=== PATIENT | male | born 1950 | race African-American/Black ===

== ENCOUNTER 2017-03-19 00:17 | Emergency (ER) | payer OTHER ==
--- NOTE | ~2017-03-19 | HP ---
Unit #: [id number] #: [id number] Patient: PRADEEP PAREDES [id number] [place], [place] [address] [id number] I MR#: [id number] NAME: PRADEEP PAREDES ROOM: 22163 Age: 66 Sex: M Admission Date: 03/19/2017 : 1950 Attending Physician: Swati Palencia M.D. Primary Care Physician: No Primary Care Physician HISTORY AND PHYSICAL CHIEF COMPLAINT Chest pain and syncope. HISTORY This 66-year-old male with BPH, hypertension, is admitted for chest pain and syncope. The patient states that he was well until about 8:00 last evening when he began to experience substernal chest pressure with a pleuritic component radiating to his left shoulder. At 10:00 p.m. while watching fireworks and walking across the yard he felt warm, lightheaded, and then had a brief syncopal episode where he collapsed and blacked out. Hewitt short of breath with this episode. He was brought to this emergency department after three sublingual nitroglycerin were given by EMS without improvement. In the ER he was found to be bradycardic with a heart rate of 48. He continues to have substernal chest discomfort, worse with movement, again with a pleuritic component. Denies calf pain or swelling, recent travel. On examination he is also a bit tender in the left upper quadrant. EKG shows a sinus bradycardia, rate 51. He is nonorthostatic. Initial cardiac enzymes are negative. Patient was admitted to [facility] 2006 and underwent a negative cardiac catheterization during that hospitalization. Was last admitted to this facility 04/2011 for chest pain. Stress Cardiolite was negative for stress induced ischemia, although his left ventricular ejection fraction was 37% with septal hypokinesis. PAST MEDICAL HISTORY 1. BPH. 2. Cardiac catheterization negative in 2006. 3. Cardiolite stress test 2010 revealed an ejection fraction of 37% without ischemia but with septal hypokinesis. 4. Essential hypertension. 5. Colonoscopy and EGD 12/24 revealing gastritis, diverticular disease and a polyp, which was snared. 6. Right arthroscopic knee surgery. 7. Drainage of a left hydrocele. ALLERGIES None. HOME MEDICATIONS Norvasc 10 mg daily; metoprolol 50 mg b.i.d.; Flexeril 10 mg t.i.d.; nitroglycerin p.r.n. Unit #: [id number] #: [id number] Patient: PRADEEP PAREDES FAMILY HISTORY Positive for CAD. SOCIAL HISTORY The patient lives with his . He smokes less than 1/2 pack per day of tobacco, is trying to stop smoking, does not drink alcohol. REVIEW OF SYSTEMS Notable for chest pain, syncope, collapse, BPH, hypertension, above mentioned surgeries. Other systems were reviewed and are otherwise negative. PHYSICAL EXAMINATION GENERAL: Pleasant 66-year-old male currently in no acute distress. VITAL SIGNS: Temperature 97.7, pulse 48, respirations 17, blood pressure 134/69. Patient is nonorthostatic. O2 saturation is 100% on room air. HEENT: Eyes - PERRLA, extraocular muscles are intact. Pharynx is benign. NECK: Supple without adenopathy or thyromegaly. CHEST: Clear. Chest without reproducible chest wall tenderness. CARDIAC: Normal S1 and S2 without S3, S4, or murmur. ABDOMEN: Bowel sounds are present, patient is somewhat tender in the epigastric and left upper quadrant, which does not reproduce his chest pain, however. No hepatosplenomegaly or masses. No rebound or guarding. EXTREMITIES: Without clubbing, cyanosis or edema. Pedal pulses are present. Negative Thelma sign, no ulcers on the feet. NEUROLOGIC: Patient is awake, alert and oriented. Cranial nerves are intact. Equal strength throughout. DIAGNOSTIC STUDIES ADMISSION LABS: Hematocrit is 45.2, normal white count and platelet count. SMA 12 - glucose is 140, BNP initial set of cardiac enzymes are negative. IMAGING STUDIES: Chest x-ray - no acute disease. CARDIOLOGY STUDIES: EKG - sinus bradycardia rate 51 with a T wave inversion noted in V3. One PVC noted. ASSESSMENT 1. Somewhat atypical chest pain. 2. Syncope preceded by lightheadedness, patient is found to have sinus bradycardia on Lopressor. He is nonorthostatic. 3. Sinus bradycardia. 4. Essential hypertension. PLANS 1. Serial cardiac enzymes. Continue aspirin, which was given en route, and ask cardiology to see if CT scan of the chest is negative. 2. Obtain CT of the chest, and of the upper abdomen. 3. Check amylase and lipase. 4. Decrease Lopressor and obtain TSH. 5. SCDs for DVT prophylaxis. 6. Further workup depending on above. Dictated by Unit #: [id number] #: [id number] Patient: PRADEEP PAREDES M.D. AML/ts TD: 03/19/2017 06:13 JOB #: [id number] CC: Aldo Alejandro M.D. HISTORY AND PHYSICAL Page 1 of 1 X Swati Palencia MD X HISTORY AND PHYSICAL
--- NOTE | ~2017-03-19 | ST ---
Unit #: [id number] #: [id number] Patient: PRADEEP PAREDES [id number] [address] [id number] I MR#: [id number] NAME: PRADEEP PAREDES : 1950 SEX: M STUDY DATE/TIME: 03/19/2017 UNIT: [facility] ROOM: 26445 STUDY DESCRIPTION: Stress test. Attending Physician: Ky Odom M.D. Primary Care Physician: No Primary Care Physician CARDIOLOGY REPORT EXAM Stress nuclear and ECG combined. INDICATIONS Chest pain. SUMMARY Patient exercised on a Juan protocol to maximal effort. Patient was given technetium 99 Cardiolite, 10.6 and 29 mCi at rest and stress, respectively. Appropriate views were obtained. FINDINGS Patient completed 7 minutes and 46 seconds of exercise. Heart rate increased from 45 to 133 (86%) and blood pressure increased, 145/81 to 190/80. The rest and stress ECG showed no diagnostic ST shifts. There were single PVCs and PACs seen during stress. Perfusion images demonstrate normal perfusion throughout the myocardium at both rest and stress. There is intestinal artifact both at rest and stress. Planar images show no significant patient motion at rest or stress. There is no significant lung uptake, LV or RV enlargement. Gated perfusion wall motion analysis demonstrates end-diastolic volume 104 mL with ejection fraction 52% and no discreet wall motion abnormalities. Summed stress score is a 2. Summed difference score is 2. IMPRESSION 1. Myocardial perfusion scan demonstrates no ischemia or infarction. 2. Normal wall motion with excellent ejection fraction. LV size is upper normal. 3. Aqdq-wy-igeskzvn deconditioning based on the patient's age. Dictated by... Won Francois/lizzie TD: 03/19/2017 13:07 JOB #: [id number] Unit #: [id number] #: [id number] Patient: PRADEEP PAREDES CARDIOLOGY REPORT Page 1 of 1 X Nico Castillo MD CARDIOLOGY REPORT
--- NOTE | ~2017-03-19 | CR72 ---
[facility] A Service of [facility] & [facility] RADIOLOGY TEXT RESULTS PATIENT: PRADEEP PAREDES LOCATION: [facility] [address]-51 : 50 UNIT #: [id number] AGE: [address]: Ky Odom MD SEX: M ORDER DR: [id number] [facility] [address] [facility]. [place], [place] [address] [id number] I MR#: [id number] Acc #: [id number] NAME: PRADEEP PAREDES : 1950 SEX: M STUDY DATE/TIME: 03/19/2017 0:31 UNIT: [facility] ROOM: 13426 STUDY DESCRIPTION: CR Chest Single View Portable Attending Physician: Ky Odom M.D. Ordering Physician: Lc Nunez M.D. Primary Care Physician: No Primary Care Physician MEDICAL IMAGING REPORT This report is preliminary unless electronic signature is present EXAM Single view chest. INDICATION Chest pain and shortness of air for 1 day. TECHNIQUE Single, portable, AP view of the chest compared to 02/27/2014. FINDINGS The heart and mediastinal contours are unchanged. The lungs are clear. No pleural effusion. IMPRESSION No acute findings. Dictated by... Srini Madera M.D. THIS IS AN ELECTRONICALLY VERIFIED REPORT Srini Madera M.D. at 03/19/2017 11:39 PM TAN/surjit TD: 03/19/2017 10:49 JOB #: [id number] MEDICAL IMAGING REPORT Page 1 of 1 COPY
--- NOTE | ~2017-03-19 | US37 ---
[facility] A Service of [facility] & [facility] RADIOLOGY TEXT RESULTS PATIENT: PRADEEP PAREDES LOCATION: [facility] : 50 UNIT #: [id number] AGE: [address]: Lc Nunez MD SEX: M ORDER DR: [id number] [facility] [address] [facility]. [place], [place] [address] [id number] I MR#: [id number] Acc #: [id number] NAME: PRADEEP PAREDES : 1950 SEX: M STUDY DATE/TIME: 03/19/2017 12:36 UNIT: [facility] ROOM: 18403 STUDY DESCRIPTION: US Carotid W/Doppler Bilateral Attending Physician: Ky Odom M.D. Ordering Physician: Boo Azar M.D. Primary Care Physician: No Primary Care Physician MEDICAL IMAGING REPORT This report is preliminary unless electronic signature is present EXAM Carotid duplex scan. DATE OF EXAMINATION 03/19/2017 HISTORY Dizziness. EXAM The right common carotid artery has mild diffuse thickening. There is a small amount of heterogeneous plaque in the right carotid bulb. The remainder of the right internal and external carotid artery are patent with minimal plaque. Peak systolic velocity in the proximal internal carotid artery is 77 cm/sec with end-diastolic velocity of 24 cm/sec. The ICA:CCA ratio on the right is 1.17. Peak systolic velocity in the right external carotid artery is 43 cm/sec. The right vertebral artery is patent with antegrade flow. The left common carotid artery has mild diffuse thickening. There is a small amount of heterogeneous plaque in the left carotid bulb. The remainder of the left internal and external carotid artery are patent with minimal plaque. Peak systolic velocity in the distal left internal carotid artery is 66 cm/sec with an end-diastolic velocity of 22 cm/sec. The ICA:CCA ratio on the left is 0.77. Peak systolic velocity in the left external carotid artery is 65 cm/sec. The left vertebral artery is patent with antegrade flow. IMPRESSION Small amount of plaque, but no significant stenosis (less than 50%) in the internal and external carotid arteries bilaterally. Patent vertebral arteries bilaterally with antegrade flow. [facility] A Service of [facility] & [facility] RADIOLOGY TEXT RESULTS PATIENT: PRADEEP PAREDES LOCATION: [facility] : 50 UNIT #: [id number] AGE: [address]: Lc Nunez MD SEX: M ORDER DR: Dictated by... Rufino Valladares M.D. THIS IS AN ELECTRONICALLY VERIFIED REPORT Rufino Valladares M.D. at 03/21/2017 7:43 AM QUINTON/alejandro TD: 03/19/2017 18:55 JOB #: [id number] MEDICAL IMAGING REPORT Page 1 of 1 COPY
--- NOTE | ~2017-03-19 | CO ---
Unit #: [id number] #: [id number] Patient: PRADEEP PAREDES [id number] [facility]. [place], [place] [address] [id number] I MR#: [id number] NAME: PRADEEP PAREDES ROOM: 78005 Age: 66 Sex: M Admission Date: 03/19/2017 : 1950 Attending Physician: Ky Odom M.D. Primary Care Physician: No Primary Care Physician Consultation Date: 03/19/2017 CONSULTATION REPORT REASON FOR CONSULTATION Chest pain and pre-syncope. HISTORY OF PRESENTING ILLNESS This is a 66-year-old male who is a patient of Dr. Alejandro with whom he follows up approximately every 6 months. He has a prior history of hypertension, hyperlipidemia, tobacco abuse and benign prostatic hypertrophy. He had a Cardiolite exercise stress test in 2010 as an increase workup for chest pain, which was negative for ischemia but did reflect decreased ejection fraction of 37% with septal hypokinesis. He reports he had a cardiac cath at [facility] in 2006, which was reportedly normal. He also states he had a cardiac cath at the [facility] in the last 2 years, which was normal. Those records are not currently available. He denies a history of diabetes. He presented to the ER with syncope. States he was walking last evening with his grandchildren. They stopped to watch fireworks, and he felt dizzy and nauseated and had crushing midsternal chest pressure that radiated into his back. States he fell to the ground but did not lose consciousness. He was so weak he was unable to get up, and he vomited. He received nitroglycerin x3 per EMS, which did reduce his chest pain. He still has some midsternal soreness, which is worse with deep breaths. In addition, he has left lower quadrant abdominal pain, which is tender to palpation. His troponins in the ER are negative x2. His EKG showed sinus bradycardia with a rate of 54 and inverted T waves in the inferolateral leads. He denies any recent illness with fever, chills, body aches, nausea, vomiting or diarrhea. PAST MEDICAL HISTORY 1. Hypertension. 2. Hyperlipidemia. 3. Tobacco abuse. 4. Benign prostatic hypertrophy. 5. Cardiolite exercise stress test in 2010. Negative for ischemia with LVEF 37%. 6. Cardiac cath in 2006. Reportedly normal. Records are currently not available. PAST SURGICAL HISTORY 1. Back surgery. 2. Hand surgery. 3. Right knee arthroscopic surgery. Unit #: [id number] #: [id number] Patient: PRADEEP PAREDES ALLERGIES No known drug allergies. HOME MEDICATIONS 1. Amlodipine 10 mg p.o. once a day. 2. Lopressor 50 mg p.o. b.i.d. 3. Flexeril 10 mg p.o. t.i.d. as needed for muscle spasms. 4. Nitroglycerin 0.4 mg sublingual as needed for chest pain. FAMILY HISTORY He has a brother who of unknown causes. States his father of myocardial infarction at a young age. SOCIAL HISTORY He smokes 1/2 pack per day, greater than 40 years. Denies alcohol or illicit drugs. REVIEW OF SYSTEMS A 10-point review of systems was conducted and was otherwise negative except for what was stated in the HPI. PHYSICAL EXAMINATION VITAL SIGNS: Temp 98.9, heart rate 48, respiratory rate 12, blood pressure 138/59, height 63", weight 68.03 kg. GENERAL: The patient is a 66-year-old male in no acute distress. NECK: Trachea is midline. No thyromegaly or lymphadenopathy. NO JVD. HEART: S1 and S2. Regular rate and rhythm. No murmurs, rubs or gallops. LUNGS: Clear. Nonlabored respirations. ABDOMEN: Soft. Positive left lower quadrant tenderness. Positive bowel sounds. EXTREMITIES: Pedal pulses are palpable. No pedal edema. No cyanosis. DIAGNOSTIC STUDIES LABORATORY RESULTS: Sodium 139, potassium 3.9, chloride 109, BUN 21, creatinine 1.1, glucose 103. Hemoglobin 13.7, hematocrit 42.6, white blood cell count 9.3, platelets 231. AST 29, ALT 27, alkaline phosphatase 74, lipase 16. BNP 25. Iijwa-sp-ceji troponin less than 0.05, and repeat troponin less than 0.03. IMAGING STUDIES: Chest x-ray showed no active disease. CARDIOVASCULAR STUDIES: EKG - reveals sinus bradycardia with a ventricular rate of 54 and inverted T waves in the inferolateral leads. ASSESSMENT 1. Syncope, questionable vertebrobasilar insufficiency. 2. Rule out sick sinus syndrome. 3. Chest pain, probably noncardiac, but nonspecific T wave abnormalities are present on his EKG. PLAN 1. Two-D echo. 2. Carotid and vertebral ultrasound and Doppler. 3. We will ask [facility] to see for left lower quadrant pain and tenderness. 4. Check T4 and TSH. 5. Cardiolite exercise stress test. Unit #: [id number] #: [id number] Patient: PRADEEP PAREDES 6. We will obtain his cardiac records from Dr. Alejandro's office. 7. Continue to trend troponins. 8. Check fasting lipid profile. Thank you for asking us to see this patient. We appreciate the consult. Dictated by... Marla Díaz APRN for Won Cardenas/faisal TD: 03/19/2017 12:35 JOB #: [id number] CONSULTATION REPORT Page 1 of 1 X X CONSULTATION REPORT
--- NOTE | ~2017-03-19 | CT15 ---
[facility] A Service [facility][1] RADIOLOGY TEXT RESULTS PATIENT: PRADEEP PAREDES LOCATION: [facility] : 50 UNIT #: [id number] AGE: [address]: Ky Odom MD SEX: M ORDER DR: [id number] [facility]. [place], [place] [address] [id number] I MR#: [id number] Acc #: [id number] NAME: PRADEEP PAREDES : 1950 SEX: M STUDY DATE/TIME: 03/19/2017 3:19 UNIT: [facility] ROOM: 55967 STUDY DESCRIPTION: CT Angio Chest Attending Physician: Ky Odom M.D. Ordering Physician: Swati Palencia M.D. Primary Care Physician: Primary Care Physician No MEDICAL IMAGING REPORT This report is preliminary unless electronic signature is present EXAM CTA chest INDICATION Chest pain and dizziness. Left upper quadrant abdominal pain. 1-day duration. TECHNIQUE CT angiography of the chest utilizing 100 mL Isovue-370 IV contrast. Coronal 3-D MIP reconstructions and standard sagittal reconstructions were obtained. This CT exam was performed with one or more of the following radiation dose reduction techniques: automatic exposure control, adjustment of mA and/or kV according to patient size, and iterative reconstruction. COMPARISON Chest radiograph obtained the same day. FINDINGS No thoracic aortic aneurysm or dissection. There is a three-vessel aortic arch. The arch vessels are widely patent. No central pulmonary embolus. Please note that the contrast bolus timing is suboptimal to evaluate the peripheral pulmonary arteries. No pericardial or pleural effusion. There is no focal consolidation. The central airways are patent. Mild emphysema. Early arterial phase imaging in the upper abdomen shows no acute findings. The bowel is not dilated. No acute osseous abnormalities. IMPRESSION 1. No acute aortic injury. No aneurysm or dissection. [facility] A Service [facility][1] RADIOLOGY TEXT RESULTS PATIENT: PRADEEP PAREDES LOCATION: [facility] : 50 UNIT #: [id number] AGE: [address]: Ky Odom MD SEX: M ORDER DR: 2. No central pulmonary embolus. 3. No acute findings in the chest. Dictated by... Srini Madera M.D. THIS IS AN ELECTRONICALLY VERIFIED REPORT Srini Madera M.D. at 03/19/2017 11:40 PM TAN/anaya TD: 03/19/2017 11:49 JOB #: [id number] MEDICAL IMAGING REPORT Page 1 of 1 COPY
--- NOTE | ~2017-03-19 | TH ---
Unit #: [id number] #: [id number] Patient: PRADEEP PAREDES [id number] [address] [id number] I MR#: [id number] NAME: PRADEEP PAREDES : 1950 SEX: M STUDY DATE/TIME: 03/19/2017 UNIT: [facility] ROOM: 39695 STUDY DESCRIPTION: Stress nuclear. Attending Physician: Ky Odom M.D. Primary Care Physician: No Primary Care Physician CARDIOLOGY REPORT EXAM Stress nuclear. FINDINGS Result text under stress test. Please see this report for result text. Dictated by... Won Francois/lizzie TD: 03/19/2017 13:16 JOB #: [id number] CARDIOLOGY REPORT Page 1 of 1 X Nico Castillo MD CARDIOLOGY REPORT
--- NOTE | ~2017-03-19 | CO ---
Unit #: [id number] #: [id number] Patient: PRADEEP PAREDES [id number] [place], [place] [address] [id number] I MR#: [id number] NAME: PRADEEP PAREDES ROOM: 37917 Age: 66 Sex: M Admission Date: 03/19/2017 : 1950 Attending Physician: Ky dOom M.D. Primary Care Physician: No Primary Care Physician CONSULTATION REPORT REASON FOR CONSULTATION Abdominal pain. HISTORY OF THE PRESENT ILLNESS This is a 66-year-old -[place] gentleman who is admitted after a syncopal episode last night. He was out for approximately four to five minutes. There was no CPR performed and he regained consciousness on his own. While being evaluated in the emergency room, he also mentioned that he has had some left lower quadrant pain, abdominal pain and some postprandial nausea and vomiting that has been going on for five to six months. He reports that his bowel movements are normal. He has had a prior colonoscopy that was reportedly normal at the [facility]. PAST MEDICAL HISTORY Coronary artery disease, hypertension and arthritis. PAST SURGICAL HISTORY Right knee surgery, hydrocele and cardiac stents. SOCIAL HISTORY He does smoke a half a pack of cigarettes per day and will occasionally smoke marijuana to "help stimulate his appetite". He denies any alcohol use. FAMILY HISTORY Negative for cancer. ALLERGIES He has no known drug allergies. MEDICATION Please see medication reconciliation for list of medications. REVIEW OF SYSTEMS Negative for weight loss or fevers or jaundice and is otherwise as above. PHYSICAL EXAMINATION GENERAL APPEARANCE: He is in no acute distress. VITAL SIGNS: Temperature 97.7. Heart rate 48. Respiratory rate 17. Blood pressure 134/69. HEENT: Pupils are equal and reactive to light and accommodation and his extraocular muscles are intact. NECK: Without masses or bruits. LUNGS: Good breath sounds bilaterally with equal air exchange. Unit #: [id number] #: [id number] Patient: PRADEEP PAREDES CARDIAC: Regular rate and rhythm without murmur. ABDOMEN: Soft, nondistended and he has 1 to 2+ tenderness in the left lower quadrant. There are no masses or hernias. EXTREMITIES: Without edema or cyanosis. NEUROLOGIC: He is alert and oriented. There are no focal deficits. DIAGNOSTIC STUDIES Labs are normal. IMPRESSION This is a 66-year-old gentleman who is status post a syncopal episode. He is undergoing cardiac and neurologic workup. He should probably have a CT scan of the abdomen and pelvis and if that is normal, then he needs ultrasound of the right upper quadrant plus or minus a HIDA scan. Further recommendations are to follow. Dictated by... Fady Shukla III, M.D. VCL/kd TD: 03/20/2017 10:13 JOB #: [id number] CONSULTATION REPORT Page 1 of 1 X Fady Shukla III, MD X CONSULTATION REPORT
--- NOTE | ~2017-03-19 | EKG ---
PATIENT: PRADEEP PAREDES UNIT #: [id number] Ventricular Rate: 51 BPM Atrial Rate: 51 BPM P-R Interval: 126 ms QRS Duration: 80 ms Q-T Interval: 466 ms QTC Calculation(Bezet): 429 ms P [place]: 78 degrees Calculated R [place]: 13 degrees Calculated T [place]: 19 degrees Diagnosis Line: Sinus bradycardia with occasional Premature Diagnosis Line: ventricular complexes Diagnosis Line: T wave abnormality, consider inferior ischemia Diagnosis Line: Abnormal ECG Diagnosis Line: Diagnosis Line: Confirmed by JAYSON MENDIETA MD ([id number]) on 03/19/2017 Diagnosis Line: 3:01:57 PM INTERPRETING MD: ANAM DE LEON
[~2017-03-19 00:17] MED LIST: ASPIR-TRIN325 MG PO; BACTRIM DS TABL1 TA1 PO; ECOTRIN325 MG PO; FLEXERIL10 MG PO; FLOMAX0.4 M1 PO; HYDROCHLOROTHIA25 MG PO; LIPITOR20 MG PO; LOPRESSOR PO; NICOTINE TRANSD21 MG EXT; NITROGLYGERIN0.4 MG SL; NON-ASPIRIN325 MG PO; NORVASC10 MG PO; PERCOCET5/325 PO; PREDNISONE10 MG/DOSE PO; PRILOSEC20 MG PO; ZESTRIL5 MG PO; ZITHROMAX1 G/PKT PO; ZOVIRAX PO
[2017-03-19] MEDS ORDERED: AMLODIPINE BESY10 MG PO (00:19)
[2017-03-19] MEDS ORDERED: FLEXERIL10 MG PO (00:20)
[2017-03-19] MEDS ORDERED: LOPRESSOR PO (00:20)
[2017-03-19] MEDS ORDERED: NITROGLYGERIN0.4 MG SL (00:21)
[2017-03-19 00:55] LABS: BASOPHIL# 0.1 X10e3 (0-0.3); BASOPHIL% 0.7 % (0-2.5); EOSINOPHIL# 0.1 X10e3 (0-0.7); EOSINOPHIL% 0.9 % (0.0-7.0); HEMATOCRIT 45.2 % (38.0-50.0); HEMOGLOBIN 14.5 gm/dL (13.0-16.0); LYMPHOCYTE# 2.2 X10e3 (1.0-3.5); LYMPHOCYTE% 22.5 % (17.0-45.0); MEAN CELL VOLUME 88.4 FL (83-96); MEAN CORPUSCULAR HEMOGLOBIN 28.3 PG (28-34); MEAN PLATELET VOLUME 9.2 FL (6.5-11.5); MONOCYTE# 0.7 X10e3 (0-1.0); MONOCYTE% 6.8 % (3.0-12.0); NEUTROPHIL# 6.8 X10e3 (1.5-7.1); NEUTROPHIL% 69.1 % (40-75); PLATELET COUNT 254 X10e3 (140-420); RED BLOOD COUNT 5.12 X10e (3.90-5.60); RED CELL DISTRIBUTION WIDTH 14.8 % (11.0-15.5); WHITE BLOOD COUNT 9.9 X10e3 (4.0-10.5)
[2017-03-19 00:57] LABS: DIFF IND NO
[2017-03-19 01:05] LABS: POC - CKMB 2.3 ng/mL (0.0-7.9); POC - TROPONIN <0.05 ng/mL (<=0.05)
[2017-03-19 01:16] LABS: ALBUMIN SERUM 4.4 g/dL (3.5-5.0); BILIRUBIN, DIRECT 0.1 mg/dL (0.0-0.2); BILIRUBIN,INDIRECT 0.6 mg/dL (0.0-0.9); BILIRUBIN,TOTAL 0.7 mg/dL (0.2-2.0); CALCIUM SERUM 9.1 mg/dL (8.4-10.2); CREATININE SERUM 1.1 mg/dL (0.6-1.4); GLOM FILT RATE Estimated 80.7 mL/min (>60); POTASSIUM 4.1 mmol/L (3.5-5.1); PROTEIN TOTAL SERUM 7.8 g/dL (6.0-8.3)
[2017-03-19 03:21] LABS: HEMATOCRIT 42.6 % (38.0-50.0); HEMOGLOBIN 13.7 gm/dL (13.0-16.0); MEAN CELL VOLUME 88.4 FL (83-96); MEAN CORPUSCULAR HEMOGLOBIN 28.5 PG (28-34); MEAN CORPUSCULAR HGB CONC 32.2 g/dL (30-36); MEAN PLATELET VOLUME 9.6 FL (6.5-11.5); RED BLOOD COUNT 4.82 X10e (3.90-5.60); RED CELL DISTRIBUTION WIDTH 14.6 % (11.0-15.5); WHITE BLOOD COUNT 9.3 X10e3 (4.0-10.5)
[2017-03-19 03:29] LABS: POC - CKMB 1.7 ng/mL (0.0-7.9); POC - TROPONIN <0.05 ng/mL (<=0.05)
[2017-03-19 03:40] LABS: PARTIAL THROMBOPLASTIN TIME 26.7 SECONDS (23.5-31.3); PROTHROMBIN TIME (PATIENT) 10.9 SECONDS (10.0-11.7)
[2017-03-19 03:48] LABS: BUN/CREATININE RATIO 19.09; CALCIUM SERUM 8.4 mg/dL (8.4-10.2); CREATININE SERUM 1.1 mg/dL (0.6-1.4); GLOM FILT RATE Estimated 80.7 mL/min (>60); POTASSIUM 3.9 mmol/L (3.5-5.1)
[2017-03-19 04:07] LABS: %MB 3.5 % (0.0-4.0); MB 3.9 ng/ml
[2017-03-19 09:58] LABS: CHOLESTEROL 147 mg/dL (0-200); HDL CHOLESTEROL 30 mg/dL (29-75); LDL CHOLESTEROL 99 mg/dL (-130); LDL/HDL RATIO 3 RATIO (0-4); TRIGLYCERIDES 88 mg/dL (10-160)
[2017-03-19 10:00] LABS: %MB 3.2 % (0.0-4.0); MB 3.2 ng/ml
[2017-03-19 10:04] LABS: THYROID STIMULATING HORMONE 0.37 uIU/ml (0.34-5.60)
[2017-03-19 10:11] LABS: FREE THYROXIN (T4) 0.73 ng/dL (0.58-1.64)
== END 2017-03-19 17:10 | disposition home or self-care (01) ==
LOC: CED 00:17 → CEDOF 02:40 → CED 02:45 → CEDOF 07:08
PROVIDERS: Emergency Medicine; Internal Medicine; Internal Medicine Cardiovascular Disease
PROC: B32TYZZ Computerized Tomography (CT Scan) of Left Pulmonary Artery using Other Contrast (ICD-10-PCS; principal; 2017-03-19)
PROC: B32SYZZ Computerized Tomography (CT Scan) of Right Pulmonary Artery using Other Contrast (ICD-10-PCS; 2017-03-19)
DX: R55 Syncope and collapse (principal); R07.9 Chest pain, unspecified; I10 Essential (primary) hypertension; E78.5 Hyperlipidemia, unspecified; N40.0 Benign prostatic hyperplasia without lower urinary tract symptoms; F17.210 Nicotine dependence, cigarettes, uncomplicated; R10.32 Left lower quadrant pain; R11.2 Nausea with vomiting, unspecified; Z86.010 Personal history of colon polyps
CPT/HCPCS: 36415; 71010; 71275; 78452; 80048; 80061; 80076; 82150; 82550; 82553; 83690; 83880; 84439; 84443; 84484; 85025; 85027; 85610; 85730; 93005; 93017; 93306; 93880; 96360; 99285; A9500; Q9967